=== PATIENT | male | born 1950 | race Hispanic/Latino ===

== ENCOUNTER → 2024-04-10 | Outpatient (CLI) | payer OTHER ==
--- NOTE | 2024-04-15 10:00 | HMCIMG ---
DIAGNOSTIC MAMMOGRAM HISTORY: UNSPECIFIED LUMP LT BREAST COMPARISON: Outside left breast ultrasound from 03/27/2024. TECHNIQUE: Bilateral digital diagnostic mammogram was performed. Additional focal spot left periareolar views were obtained. FINDINGS: Parenchymal density: The breasts are almost entirely fatty. There is no evidence of a dominant mass, or suspicious microcalcification. There is no evidence of nipple retraction or skin thickening. IMPRESSION: 1. Unremarkable diagnostic mammogram including focal spot views of the left subareolar region. The patient was entered into a reminder system with a target due date for their next mammogram. BI-RADS CATEGORY 1: NEGATIVE Recommend monthly self breast exam as well as annual clinical examination. A negative x-ray should not delay biopsy if a dominant or clinically suspicious mass is present, since 8-10% of cancers are not identified by mammography. Dense breasts particularly, may obscure an underlying neoplasm. Some of these may be detected clinically and therefore, clinical examination is an essential part of breast evaluation.
== END | disposition home or self-care (01) ==
LOC: RAH 11:05
PROVIDERS: ATTEND Family Medicine
DX: N63.21 Unspecified lump in the left breast, upper outer quadrant (principal); N64.4 Mastodynia
CPT/HCPCS: 77066

== ENCOUNTER → 2024-04-15 | Outpatient (CLI) | payer OTHER ==
[~2024-04-15] MED LIST: GADOTERATE MEGLUMINE 10 MMOL/20 ML VIAL IV ONE
--- NOTE | 2024-04-15 10:05 | HMCIMG ---
MRI BREAST WWO BILAT [facility] REASON: UNSPECIFIED LUMP L BREAST COMPARISON: None TECHNIQUE: Bilateral MR breast evaluation performed using a dedicated breast coil. Images were obtained before and after IV contrast, 15 cc) IV. Multiple postcontrast acquisitions were performed using fat sat and subtraction technique. FINDINGS: There is a well-circumscribed 6 mm nodule in the subareolar region. This shows diffuse homogeneous contrast enhancement. Appearance is nonspecific but most consistent with a small fibroadenoma. Six-month interval sonographic follow-up is recommended to confirm stable appearance. Both breasts appear otherwise unremarkable. There are no other focal nodules. There is no architectural distortion or skin thickening. There is no axillary lymphadenopathy. IMPRESSION: 1. A 6 mm well-circumscribed nodule with contrast enhancement, subareolar region left breast, findings correspond with the location of the sonographic evidence. 2. Findings are nonspecific. Fibroadenoma is most likely, 6 month follow-up interval ultrasound recommended to confirm stable appearance. 3. Otherwise unremarkable pre and postcontrast MRI breasts.
== END | disposition home or self-care (01) ==
LOC: RAH 07:47 → EDUNIT# 08:00
PROVIDERS: ATTEND Family Medicine
DX: N63.42 Unspecified lump in left breast, subareolar (principal); N63.21 Unspecified lump in the left breast, upper outer quadrant; N64.4 Mastodynia
CPT/HCPCS: C8908; A9575; 77049

== ENCOUNTER → 2024-10-14 | Outpatient (CLI) | payer OTHER ==
--- NOTE | 2024-10-14 10:17 | HMCIMG ---
Left BREAST ULTRASOUND: HISTORY: MRI April 15, 2024 and breast ultrasound March 27, 2024 COMPARISON: None FINDINGS: The breast and axilla were evaluated. No cysts or solid masses are identified. The previously identified retroareolar nodule has resolved. No solid or cystic or worrisome lesions are seen. Impression: Benign left breast ultrasound. BI-RADS: CATEGORY 1: NEGATIVE Note: A negative x-ray should not delay biopsy if a dominant or clinically suspicious mass is present, since 8-10% of cancers are not identified by mammography. Thank you for allowing me to participate in this patient's care. If I can be of further assistance, please do not hesitate to call. A negative report should not delay biopsy if a clinically suspicious mass is present. Some cancers are not identified by imaging studies.
== END | disposition home or self-care (01) ==
LOC: RAH 08:30
PROVIDERS: ATTEND Family Medicine
DX: N63.21 Unspecified lump in the left breast, upper outer quadrant (principal)
CPT/HCPCS: 76642